=== PATIENT | female | born 1980 | race Caucasian/White ===

== ENCOUNTER 2017-07-27 14:08 | Emergency (ER) | payer SELFPAY ==
[~2017-07-27] VITALS: Ht 157.5 cm; Wt 88.5 kg
[~2017-07-27 14:08] MED LIST: SUD30 PO
[2017-07-27 14:23] VITALS: BP 132/82
--- NOTE | 2017-07-27 15:20 | NUR ---
PT AMBULATES TO BED 3
--- NOTE | 2017-07-27 15:38 | NUR ---
37 YO F BIB SELF W/ C/O WELCH, DIZZINES W/ N/V X 1 DAY. NO PMH, NO MEDS. REPORTS SHE DID NOT HAVE ANY TRAUMA TO THE HEAD OR NECK. REPORTS VOMITING 6 TIMES TODAY SINCE 0. HAS NOT BEEN ABLE TO EAT OR DRINK TODAY. DID NOT EAT YESTERDAY, BUT WAS ABLE TO DRINK WATER YESTERDAY. PT A&O X4. GCS 15. CMS INTACT. RR EVEN AND UNLABORED. LUNGS BILATERALLY CLEAR. ABD SOFT, NON-TENDER. ER MD ANTONY NOTIFIED. PT NEEDS MET. SAFETY PRECAUTIONS IN PLACE. WILL CONTINUE TO MONITOR.
[2017-07-27] MEDS ORDERED: DEXAMETHASONE 10 MG/ML VIAL IM ONE (16:40)
[2017-07-27] MEDS ORDERED: MECLIZINE 25 MG TAB PO ONE (16:40)
--- NOTE | 2017-07-27 16:45 | NUR ---
Pt resting comfortably in [facility] at this time. will continue to monitor.
[2017-07-27 17:54] VITALS: BP 127/81
--- NOTE | 2017-07-27 17:55 | NUR ---
Patient discharged with v/s stable. Written and verbal after care instructions given and explained. Patient alert, oriented and verbalized understanding of instructions. Ambulatory with steady gait. All questions addressed prior to discharge. ID band removed. Patient advised to follow up with PMD. Rx of Anitvert given. Patient educated on indication of medication including possible reaction and side effects. Opportunity to ask questions provided and answered.
== END 2017-07-27 17:55 | disposition home or self-care (01) ==
LOC: MED 14:08
DX: R42 Dizziness and giddiness (principal); R51 Headache; R11.10 Vomiting, unspecified; R09.82 Postnasal drip; Z88.2 Allergy status to sulfonamides
CPT/HCPCS: 81025; 96372; 99283; J1100; J8597

== ENCOUNTER 2021-01-11 23:40 | Emergency (ER) | payer SELFPAY ==
[~2021-01-11] VITALS: Ht 157.5 cm; Wt 90.7 kg
[2021-01-11 23:40] VITALS: BP 149/90
--- NOTE | 2021-01-11 23:43 | NUR ---
to lobby a/w bed ambulatory
[2021-01-12] MEDS ORDERED: DICYCLOMINE HCL LIQUID 20 MG, ALUMINUM HYD/MAG/SIMETHICONE 30 ML, LIDOCAINE VISCOUS 2% ... PO ONE ×6 (00:35→01:45)
[2021-01-12] MEDS ORDERED: DICYCLOMINE HCL LIQUID 10 MG/5 ML UDC ONE (01:47)
[2021-01-12] MEDS ORDERED: ALUMINUM HYD/MAG/SIMETHICONE 30 ML UDC ONE (01:47)
[2021-01-12] MEDS ORDERED: ACET-10509 PO (03:00)
[2021-01-12] MEDS ORDERED: MAG-27 PO (03:00)
[2021-01-12 03:06] VITALS: BP 128/87
--- NOTE | 2021-01-12 03:07 | NUR ---
Patient discharged with v/s stable. Written and verbal after care instructions given and explained. Patient verbalized understanding. Ambulatory with steady gait. All questions addressed prior to discharge. Advised to follow up with PMD.
== END 2021-01-12 03:06 | disposition home or self-care (01) ==
LOC: MED 23:40
DX: K21.9 Gastro-esophageal reflux disease without esophagitis (principal); Z79.899 Other long term (current) drug therapy; Z98.890 Other specified postprocedural states
CPT/HCPCS: 71045; 93005; 99283